=== PATIENT | female | born 1980 | race Two or more races ===

== ENCOUNTER 2018-05-10 22:05 | Observation (INO) | payer MEDICAID ==
[~2018-05-10] VITALS: Ht 170.2 cm; Wt 86.2 kg
[2018-05-10] MEDS ORDERED: PREN1TAB78 MT (22:37)
[2018-05-10] MEDS ORDERED: BETAMETHASONE ACET/BETAMET 30 MG/5 ML VIAL IM NR (22:45)
== END 2018-05-10 23:18 | disposition home or self-care (01) ==
LOC: L&D 22:05
PROVIDERS: ADMIT Obstetrics & Gynecology; ATTEND Obstetrics & Gynecology
DX: O62.9 Abnormality of forces of labor, unspecified (principal); Z3A.33 33 weeks gestation of pregnancy
CPT/HCPCS: 96372; 99281; G0378

== ENCOUNTER 2018-06-23 05:07 | Observation (INO) | payer MEDICAID ==
[~2018-06-23] VITALS: Ht 170.2 cm; Wt 86.2 kg
[~2018-06-23 05:07] MED LIST: PREN1TAB78 MT
== END 2018-06-23 09:25 | disposition home or self-care (01) ==
LOC: L&D 05:07
PROVIDERS: ADMIT Obstetrics & Gynecology; ATTEND Obstetrics & Gynecology
DX: O46.93 Antepartum hemorrhage, unspecified, third trimester (principal); O62.9 Abnormality of forces of labor, unspecified; O09.523 Supervision of elderly multigravida, third trimester; O36.8130 Decreased fetal movements, third trimester, not applicable or unspecified; Z3A.39 39 weeks gestation of pregnancy
CPT/HCPCS: 76815; 76818; 99281; G0378

== ENCOUNTER 2018-07-02 16:09 | Emergency (ER) | payer MEDICAID ==
[~2018-07-02] VITALS: Ht 170.2 cm; Wt 82.0 kg
[2018-07-02] MEDS ORDERED: SODIUM CHLORIDE 0.9% 1,000 ML IV ONE ×2 (18:37)
[2018-07-02] MEDS ORDERED: MORPHINE SULFATE 4 MG/ML CPJ (NOT FOR IM USE) IV STA (18:37)
[2018-07-02] MEDS ORDERED: ONDANSETRON HCL 4MG/2ML INJ IV STA (18:37)
[2018-07-02 18:49] LABS: BASOPHILS % 0.4 % (0.0-2.0); CLARITY URINE CLOUDY (CLEAR); COLOR URINE YELLOW (YELLOW); EOSINOPHILS % 1.6 % (0.0-5.0); HEMATOCRIT. 41.5 % (36.0-48.0); HEMOGLOBIN. 14.1 g/dL (12.0-16.0); KETONES URINE NEGATIVE (NEGATIVE); LEUKOCYTE ESTERASE URINE 3+ (NEGATIVE); LYMPHOCYTES % 17.6 % (20.0-50.0); MEAN CORPUSCULAR HEMOGLOBIN 32.1 pg (28.0-32.0); MEAN CORPUSCULAR VOLUME 94.2 fL (81.0-99.0); MEAN PLATELET VOLUME 8.6 fl (7.4-10.4); MONOCYTES % 10.3 % (2.0-8.0); NEUTROPHILS % 70.1 % (40.0-76.0); NITRITE URINE NEGATIVE (NEGATIVE); OCCULT BLOOD URINE 3+ (NEGATIVE); PH URINE 5.5 (4.5-8.0); PLATELET 224 x1000/uL (130-400); PROTEIN URINE NEGATIVE (NEGATIVE); RED CELL DISTRIBUTION WIDTH 14.7 % (11.6-14.6); SPECIFIC GRAVITY URINE 1.009 (1.005-1.030); UROBILINOGEN URINE 0.2 E.U./dL (0.2-1.0)
[2018-07-02 18:55] LABS: CHLORIDE 106 mEq/L (98-107)
[2018-07-02 19:06] LABS: B-HCG QUANTITATIVE 17 mIU/mL (<3)
[2018-07-02] MEDS ORDERED: CEFTRIAXONE 1 G PREMIX 50 ML IV ONE (20:30)
[2018-07-02] MEDS ORDERED: DEXTROSE 50% WATER 50ML SYRINGE IV ONE (20:30)
[2018-07-02] MEDS ORDERED: IOHEXOL-300 100 ML BOTTLE ONE (21:26)
[2018-07-02 22:42] VITALS: BP 116/74
== END 2018-07-02 22:42 | disposition home or self-care (01) ==
LOC: ER 16:09
DX: N39.0 Urinary tract infection, site not specified (principal); N93.9 Abnormal uterine and vaginal bleeding, unspecified
CPT/HCPCS: 36415; 74177; 76856; 80053; 81003; 82962; 84702; 85025; 86850; 86900; 86901; 87086; 96361; 96365; 96375; 99284; J0696; J2270; J2405; J7030; Q9967